=== PATIENT | male | born 1940 | race Asian ===

== ENCOUNTER 2019-08-08 10:17 | Emergency (ER) | payer MEDICAID ==
[~2019-08-08] VITALS: Ht 170.2 cm; Wt 74.8 kg
[2019-08-08 10:24] VITALS: Ht 170.2 cm; Wt 74.8 kg
[2019-08-08 11:38] LABS: CALCIUM 9.4 mg/dL (8.5-10.1); CARBON DIOXIDE 26.1 mmol/L (21-32); CHLORIDE SERUM 100 mmol/L (98-107); CREATININE SERUM 1.1 mg/dL (0.7-1.3); GLUCOSE SERUM 260 mg/dL (74-106); POTASSIUM SERUM 4.1 mmol/L (3.5-5.1); SODIUM SERUM 137 mmol/L (136-145)
[2019-08-08 11:43] LABS: ALBUMIN 3.6 g/dL (3.4-5.0); ALKALINE PHOSPHATASE 68 U/L (46-116); ALT/SGPT 30 U/L (16-63); AST/SGOT 19 U/L (15-37); BILIRUBIN TOTAL 1.4 mg/dL (0.20-1.00); LIPASE 50 IU/L (73-393); TOTAL PROTEIN, SERUM 7.6 g/dL (6.4-8.2)
[2019-08-08 11:53] LABS: BASOPHIL % 0.6 % (0-2); PLATELET COUNT 203 x10^3mcL (130-400); RED CELL DISTRIBUTION WIDTH 13.3 % (11.5-14.5)
[2019-08-08 12:49] VITALS: BP 151/73
== END 2019-08-08 12:35 | disposition short-term general hospital (02) ==
LOC: ED 10:17
PROVIDERS: Emergency Medicine
DX: I63.9 Cerebral infarction, unspecified (principal); R11.0 Nausea; R19.7 Diarrhea, unspecified; R10.30 Lower abdominal pain, unspecified; I10 Essential (primary) hypertension
CPT/HCPCS: 82962; J2405; J7030